=== PATIENT | male | born 1980 | race Asian ===

== ENCOUNTER 2022-03-20 13:09 | Outpatient (CLI) | payer OTHER | END 2022-03-20 13:10 | disposition home or self-care (01) | LOC: SCSMRI 13:09 | PROVIDERS: ATTEND Internal Medicine Hematology & Oncology | DX: C11.2 Malignant neoplasm of lateral wall of nasopharynx (principal); H74.8X3 Other specified disorders of middle ear and mastoid, bilateral; J38.7 Other diseases of larynx; J34.89 Other specified disorders of nose and nasal sinuses | CPT/HCPCS: 70543 ==

== ENCOUNTER 2025-03-21 07:19 | Outpatient (CLI) | payer OTHER | END 2025-03-21 07:20 | disposition home or self-care (01) | LOC: SCSMRI 07:19 | PROVIDERS: ATTEND Radiology Radiation Oncology | DX: C79.31 Secondary malignant neoplasm of brain (principal); C80.1 Malignant (primary) neoplasm, unspecified; G93.9 Disorder of brain, unspecified | CPT/HCPCS: 70553; 76376; A9577 ==

== ENCOUNTER 2025-03-21 09:44 | Outpatient (CLI) | payer OTHER ==
[2025-03-21] MEDS ORDERED: Iopamidol 370 76% 100 ML VIAL ONE (13:11)
== END 2025-03-21 09:45 | disposition home or self-care (01) ==
LOC: CT 09:44
PROVIDERS: ATTEND Internal Medicine Hematology & Oncology
DX: C11.2 Malignant neoplasm of lateral wall of nasopharynx (principal); R59.0 Localized enlarged lymph nodes
CPT/HCPCS: 70491; Q9967